=== PATIENT | male | born 1980 ===

== ENCOUNTER 2020-08-31 19:14 | Emergency (ER) | payer SELFPAY ==
[2020-08-31 19:24] VITALS: BP 134/91
[2020-08-31] MEDS ORDERED: SODIUM CHLORIDE 0.9% 1000 ML 1,000 ML IV ONE (20:02)
[2020-08-31] MEDS ORDERED: diphenhydrAMINE 50 MG/ML VIAL IV STA (20:02)
[2020-08-31] MEDS ORDERED: methylPREDNISolone Sod Succinate 125 MG/2 ML INJ IV ONE (20:02)
[2020-08-31] MEDS ORDERED: FAMOTIDINE 20 MG/2 ML INJ IV ONE (20:03)
--- NOTE | 2020-08-31 20:07 | Emergency Department Report ---
ED Allergic Reaction HPI - General Chief complaint: Allergic Reaction Stated complaint: ALLERGIC REACTION TO BEE STING Time Seen by Provider: 08/31/20 20:02 Source: patient Mode of arrival: Ambulatory Limitations: No Limitations - History of Present Illness Initial Comments: 40-year-old male [facility] emerge department status post multiple stings by a yellow jacket while he was working. 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 Since that time has been experiencing redness burning hives which have not yet been improved since the onset. Reports no odynophagia or dysphagia, no abdominal pain, no fever, chills, sweats MD Complaint: allergic reaction, hives -: Sudden Symptoms: itching. denies: facial swelling, lip swelling, difficulty swallowing Severity: moderate Treatment Prior to Arrival: none Previous Allergy History: none - Related Data Previous Rx's Medication Instructions Recorded Last Taken Type Mometasone Furoate [Elocon] 1 applicatio TP QDAY #45 cream..g. 08/31/20 Unknown Rx hydrOXYzine HCL [Atarax] 25 mg PO Q6HR PRN #20 tablet 08/31/20 Unknown Rx predniSONE [Deltasone] 50 mg PO QDAY #5 tab 08/31/20 Unknown Rx Allergies Allergy/AdvReac Type Severity Reaction Status Date / Time No Known Allergies Allergy Unverified 08/31/20 19:28 ED Review of Systems ROS: Stated complaint: ALLERGIC REACTION TO BEE STING Other details as noted in HPI Comment: All other systems reviewed and negative ED Past Medical Hx - Past Medical History Previous Medical History?: No - Surgical History Past Surgical History?: No - Social History Smoking Status: Unknown if ever smoked - Medications Home Medications: Home Medications Medication Instructions Recorded Confirmed Last Taken Type Mometasone Furoate [Elocon] 1 applicatio TP QDAY #45 cream..g. 08/31/20 Unknown Rx hydrOXYzine HCL [Atarax] 25 mg PO Q6HR PRN #20 tablet 08/31/20 Unknown Rx predniSONE [Deltasone] 50 mg PO QDAY #5 tab 08/31/20 Unknown Rx ED Physical Exam - General Limitations: No Limitations General appearance: alert, in no apparent distress - Head Head exam: Present: atraumatic, normocephalic - Eye Eye exam: Present: normal appearance, PERRL, EOMI - ENT ENT exam: Present: mucous membranes moist, other (Airway patent tongue and uvula midline) - Neck Neck exam: Present: normal inspection - Respiratory Respiratory exam: Present: normal lung sounds bilaterally. Absent: respiratory distress - Cardiovascular Cardiovascular Exam: Present: regular rate, normal rhythm. Absent: systolic murmur, diastolic murmur, rubs, gallop - GI/Abdominal GI/Abdominal exam: Present: soft, normal bowel sounds - Rectal Rectal exam: Present: deferred - Extremities Exam Extremities exam: Present: normal inspection - Back Exam Back exam: Present: normal inspection - Neurological Exam Neurological exam: Present: alert, oriented X3 - Psychiatric Psychiatric exam: Present: normal affect, normal mood - Skin Skin exam: Present: warm, dry, intact, erythema, urticaria (To the upper extremities and torso). Absent: rash ED Course Vital Signs 08/31/20 19:19 Temperature 98.7 F Pulse Rate 107 H Respiratory 18 Rate Blood Pressure 134/91 O2 Sat by Pulse 96 Oximetry ED Medical Decision Making - Medical Decision Making This patient presents with symptoms consistent with acute hypersensitivity reaction, likely acute allergic reaction to yellowjacket. Presentation not consistent with acute anaphylaxis (lack of pulmonary, dermatologic, cardiovascular or GI symptoms, lack of hypotension or exposure to known allergen), angioedema, serum sickness(no recent drug exposure, lack of fevers, arthralgias), ingestion of preformed toxin. No evidence of airway compromise or shock at this time. Plan to treat for allergic reaction with H2/H1 blockers, steroids. No indication for epinephrine at this time. Plan Critical care attestation.: If time is entered above; I have spent that time in minutes in the direct care of this critically ill patient, excluding procedure time. ED Disposition Clinical Impression: Bee sting allergy Disposition: [id number] PSY HOSP/PSY UNIT Is pt being admited?: No Does the pt Need Aspirin: No Condition: Stable Instructions: How to Use an Auto-Injector Pen, Allergies, Adult, Bee, Wasp, or Hornet Sting, Adult Additional Instructions: You have been evaluated in the emergency department today for allergic reaction. Been given medication to control your symptoms. You have been observed for several hours emerge department and you are stable for discharge at this time. You can take Benadryl and Pepcid which are available [id number] to help control your symptoms at home. You have also been given a prescription for medications to help with your symptoms in the form of steroids and and 8/histamine blockers. Please schedule appointment with your primary care physician for follow-up. Return to emergency department if you experience rashes, difficulty breathing or swallowing, lip mouth or tongue swelling, vomiting or for any other concerning symptoms Prescriptions: hydrOXYzine HCL [Atarax] 25 mg PO Q6HR PRN #20 tablet PRN Reason: Itching predniSONE [Deltasone] 50 mg PO QDAY #5 tab Mometasone Furoate [Elocon] 1 applicatio TP QDAY #45 cream..g. Referrals: [facility] [Provider Group] - 2-3 Days COOPER FREED MD [Staff Physician] - 2-3 Days
[2020-08-31] MEDS ORDERED: ONDANSETRON 4 MG/2 ML INJ ONE (20:17)
[2020-08-31] MEDS ORDERED: HYDROcodone/ACETAMINOPHEN 5-325 MG TAB PO ONE (20:19)
[2020-08-31] MEDS ORDERED: ONDANSETRON 4 MG/2 ML INJ IV ONE (20:20)
== END 2020-08-31 21:50 ==
LOC: ED 19:14
DX: Z79.899 Other long term (current) drug therapy (principal); Z91.030 Bee allergy status
CPT/HCPCS: 96361; 96374; 96375; 99282; J1200; J2405; J2930; J7030